=== PATIENT | male | born 1970 | race Caucasian/White ===

== ENCOUNTER 2022-07-10 17:46 | Inpatient (IN) | payer OTHER, SELFPAY ==
[2022-07-10 17:57] VITALS: BP 136/70; BP 143/66; PULSE 76; PULSE 90; RESP 17; TEMP 37; O2SAT 93; BMI 29.2
--- NOTE | 2022-07-10 18:24 | ED.PSYCH ---
HPI - Psych General Chief Complaint: Psychiatric Symptoms Stated Complaint: psychosis Time Seen by Provider: 07/10/22 18:18 Source: patient and EMS Mode of arrival: EMS Limitations: no limitations History of Present Illness HPI Narrative: 52-year-old male came in by EMS for patient being disorganized. Patient with psych history noncompliant with his medication complaining of auditory hallucination hearing voices, patient also found to have erratic behavior and walking around naked patient became very agitated required restraining from EMS before hospital transportation. Related Data Allergies Allergy/AdvReac Type Severity Reaction Status Date / Time No Known Allergies Allergy Unverified 01/05/20 18:47 Review of Systems Review of Systems: All other systems are reviewed and are negative Constitutional: Reports as per HPI and Reports no additional constitutional complaints Eyes: Reports as per HPI and Reports no additional eye complaints Reports system reviewed and no additional complaints, except as documented Cardiovascular: Reports as per HPI and Reports no additional cardiovascular complaints Respiratory: Reports as per HPI and Reports no additional respiratory complaints Gastrointestinal: Reports as per HPI and Reports no additional gastrointestinal complaints Genitourinary: Reports no additional female genitourinary complaints Musculoskeletal: Reports no additional musculoskeletal complaints Skin/Breast: Reports system reviewed and no additional complaints, except as docu Psychiatric: Reports no additional psychiatric complaints Endocrine: Reports no additional endocrine complaints Hematologic/Lymphatic: Reports no additional hematologic/lymphatic complaints Allergic/Immunologic: Reports no additional allergic/immunologic complaints Reports system reviewed and no additional complaints, except as documented and Reports Abnormal speech present COUNT INCLUDES THE [facility] Social History Social History Advance Directives: No Advance Directives Information Provided: No Physical Exam Vital Signs: Vital Signs: Last Vital Signs Temp 98.6 F 07/10/22 17:57 Pulse 76 07/10/22 17:57 Resp 17 07/10/22 17:57 BP 143/66 H 07/10/22 17:57 Pulse Ox 93 07/10/22 17:57 O2 Del Method Room Air 07/10/22 17:57 BMI result Body Mass Index 29.2 Vital signs have been reviewed as appeared to be correct. Blood pressure normal. Heart rate normal. Respiration rate normal. Temperature normal. Oxygen saturation normal. Appearance: Alert. Oriented X3. No acute distress. Head: Normal external exam. Normocephalic. Atraumatic. No Lance signs noted. No raccoon eyes noted Eyes: PERRLA. EOMI. Conjunctiva and sclera normal. Eyelids normal. ENT: TM's Normal. Pharynx normal. Uvula midline. Moist mucous membranes. No trismus noted. No drooling noted. No muffled voice noted. Neck: Normal inspection. Neck supple. FROM. No adenopathy. Thyroid Normal. No meningeal signs. No neck mass noted. CVS: Normal heart rate and rhythm. Heart sound normal. No murmurs noted. Pulses normal throughout. Respiratory: No respiratory distress. Painless inspiration. Breath sounds normal. No wheezes/rales/rhonchi noted. Chest nontender. No accessory muscle usage noted or decreased air movement noted. Abdomen: Soft and nontender. Bowel sounds normal in all 4 quadrants. No distention noted. No organomegaly noted. No visible injury noted. Back: No CVA tenderness. Full range of motion noted. Skin: Skin warm and dry. Normal skin color. Normal skin turgor. No rashes/lesions/lacerations noted. Extremities: No lower extremity edema. Extremities exhibit normal range of motion. Extremities nontender. Neuro: Oriented X 3. Cranial nerve exam: II-XII are grossly intact No motor deficit. No sensory deficit. Reflexes normal. Patient Orientation: Person, Place, Time and Situation, okay hygiene and grooming. Fair eye contact, attentive, no tics or tremors. Level of Consciousness: Awake, Appropriate and Alert Patient Behavior: Appropriate, Guarded, Cooperative and Anxious Mood Description: Constricted, Blunted and Apprehensive Affect Description: Constricted, Blunted and Apprehensive Patient Cognition Impaired: No Ability to Follow Directions: Excellent Speech Pattern: Clear, Appropriate and Spontaneous Speech, nonpressured, spontaneous with regular rate and rhythm, normal volume and prosody. No dysarthria. Memory Description: Intact, Immediate Intact and Short Term Intact Hallucinations: Auditory hallucination is present. Delusions: Not Present Thought Process: Intact Thought Content: positive for Intact, positive for Logical, denies Suicidal Ideation and denies Homicidal Ideation. Depressive Symptoms: Not present. Judgement and Insight: Limited but adequate. Course Course Course Narrative: Acute psychosis, medical clearance leukocytosis likely secondary to stress reaction., and care team evaluation. Medical Decision Making Differential Diagnosis Differential Diagnoses: The differential diagnosis associated with the presentation includes (Acute psychosis, electrolyte disturbance, renal insufficiency.) Lab Data 07/10/22 18:47 07/10/22 18:47 Labs: Lab Results 07/10/22 07/10/22 07/10/22 Range/Units 18:13 18:13 18:13 WBC (4.8-10.8) X10*3/uL RBC (4.60-5.80) X10*6/uL Hgb (14.0-18.0) g/dl Hct (42.0-52.0) % MCV (80.0-98.0) fL MCH (27.0-33.0) pg MCHC (31.0-36.0) g/dl RDW (11.0-16.0) % Plt Count (160-400) X10*3/uL MPV (9.4-12.4) fL Immature Gran % (Auto) (0.0-0.4) % Neut % (Auto) (45-73) % Lymph % (Auto) (20-40) % Coles % (Auto) (2-11) % Eos % (Auto) (0-4) % Baso % (Auto) (0-2) % Lymph # (Auto) (1.2-4.9) X10*3/uL Coles # (Auto) (0.1-1.2) X10*3/uL Eos # (Auto) (0.0-0.4) X10*3/uL Baso # (Auto) (0.0-0.2) X10*3/uL Abs Immat Gran (auto) (0.00-0.03) X10*3/uL Absolute Neuts (auto) (2.0-8.3) x10*3/uL Absolute Nucleated RBC (0.0-0.012) X10*3/uL Nucleated RBC % (auto) (0.0-0.2) /100WBC Sodium (135-145) mmol/L Potassium (3.3-5.1) mmol/L Chloride (96-108) mmol/L Carbon Dioxide (22-29) mmol/L Anion Gap (12-20) BUN (9-16) mg/dL Creatinine (0.5-1.4) mg/dL Estim Creat Clear Calc Estimated GFR Random Glucose (60-115) mg/dL Calcium (8.4-10.2) mg/dL Total Bilirubin (0.0-1.0) mg/dL AST (5-37) U/L ALT (0-40) U/L Alkaline Phosphatase (39-117) U/L Total Protein (6.5-8.0) g/dL Albumin (3.5-5.0) g/dL Urine Color Yellow Urine Appearance Clear Urine pH 6.5 (5.0-9.0) Ur Specific Hendrix 1.010 (1.005-1.025) Urine Protein Negative (Neg-Trace) mg/dL Urine Glucose (UA) Negative (Negative) mg/dL Urine Ketones Negative (Negative) mg/dL Urine Blood Negative (Negative) Urine Nitrite Negative (Negative) Ur Leukocyte Esterase Small (1+) H (Negative) Urine RBC 0-2 (0-2) /HPF Urine WBC 0-5 (0-5) /HPF Ur Squamous Epith Cells 0-2 (0-2) /HPF Urine Bacteria None Seen (None Seen) Hyaline Casts 0-2 (0-2) /LPF Urine Opiates Screen Not Detected (Not Detect) Urine Fentanyl Screen Not Detected (Not Detect) Ur Barbiturates Screen Not Detected (Not Detect) Ur Phencyclidine Scrn Not Detected (Not Detect) Ur Amphetamines Screen Not Detected (Not Detect) U Benzodiazepines Scrn POSITIVE H (Not Detect) Urine Cocaine Screen Not Detected (Not Detect) U Marijuana (THC) Screen POSITIVE H (Not Detect) Ethyl Alcohol mg/dL COVID-19 (SHANNA) Negative (Negative) COVID-19 Clin Com See Note 07/10/22 07/10/22 Range/Units 18:47 18:47 WBC 14.5 H (4.8-10.8) X10*3/uL RBC 4.47 L (4.60-5.80) X10*6/uL Hgb 13.8 L (14.0-18.0) g/dl Hct 41.0 L (42.0-52.0) % MCV 91.7 (80.0-98.0) fL MCH 30.9 (27.0-33.0) pg MCHC 33.7 (31.0-36.0) g/dl RDW 11.9 (11.0-16.0) % Plt Count 245 (160-400) X10*3/uL MPV 8.8 L (9.4-12.4) fL Immature Gran % (Auto) 0.3 (0.0-0.4) % Neut % (Auto) 80.7 H (45-73) % Lymph % (Auto) 14.1 L (20-40) % Coles % (Auto) 4.5 (2-11) % Eos % (Auto) 0.1 (0-4) % Baso % (Auto) 0.3 (0-2) % Lymph # (Auto) 2.1 (1.2-4.9) X10*3/uL Coles # (Auto) 0.7 (0.1-1.2) X10*3/uL Eos # (Auto) 0.0 (0.0-0.4) X10*3/uL Baso # (Auto) 0.1 (0.0-0.2) X10*3/uL Abs Immat Gran (auto) 0.05 H (0.00-0.03) X10*3/uL Absolute Neuts (auto) 11.7 H (2.0-8.3) x10*3/uL Absolute Nucleated RBC 0.000 (0.0-0.012) X10*3/uL Nucleated RBC % (auto) 0.0 (0.0-0.2) /100WBC Sodium 135 (135-145) mmol/L Potassium 4.2 (3.3-5.1) mmol/L Chloride 96 (96-108) mmol/L Carbon Dioxide 27 (22-29) mmol/L Anion Gap 16 (12-20) BUN 15 (9-16) mg/dL Creatinine 1.23 (0.5-1.4) mg/dL Estim Creat Clear Calc 80.8 Estimated GFR > 60 Random Glucose 152 H (60-115) mg/dL Calcium 9.7 (8.4-10.2) mg/dL Total Bilirubin 0.7 (0.0-1.0) mg/dL AST 30 (5-37) U/L ALT 23 (0-40) U/L Alkaline Phosphatase 48 (39-117) U/L Total Protein 6.7 (6.5-8.0) g/dL Albumin 4.4 (3.5-5.0) g/dL Urine Color Urine Appearance Urine pH (5.0-9.0) Ur Specific Hendrix (1.005-1.025) Urine Protein (Neg-Trace) mg/dL Urine Glucose (UA) (Negative) mg/dL Urine Ketones (Negative) mg/dL Urine Blood (Negative) Urine Nitrite (Negative) Ur Leukocyte Esterase (Negative) Urine RBC (0-2) /HPF Urine WBC (0-5) /HPF Ur Squamous Epith Cells (0-2) /HPF Urine Bacteria (None Seen) Hyaline Casts (0-2) /LPF Urine Opiates Screen (Not Detect) Urine Fentanyl Screen (Not Detect) Ur Barbiturates Screen (Not Detect) Ur Phencyclidine Scrn (Not Detect) Ur Amphetamines Screen (Not Detect) U Benzodiazepines Scrn (Not Detect) Urine Cocaine Screen (Not Detect) U Marijuana (THC) Screen (Not Detect) Ethyl Alcohol < 10 mg/dL COVID-19 (SHANNA) (Negative) COVID-19 Clin Com Discharge Plan Discharge Clinical Impression: Acute psychosis Patient Disposition: Still a Patient Interventions: [place]-Suicide Risk Severity Scale Last Done: 07/10/22 18:00
[2022-07-10 18:31] LABS: Appearance Urine Clear; Color Urine Yellow; Glucose Urine UA Negative (Negative); Leukocyte Esterase Urine Small (1+) (Negative); Nitrite Urine Negative (Negative); PH 6.5 (5.0-9.0); UMIC TRIGGER UACC YES; Urine Blood Negative (Negative); Urine Ketones Negative (Negative); Urine Protein Negative (Neg-Trace)
--- NOTE | 2022-07-10 18:38 | PC.NURSE ---
patient cooperative with staff. no belongings present on admit. will CTM for escalating behaviors
[2022-07-10 18:44] LABS: Bacteria Urine None Seen (None Seen); Hyaline Casts Urine 0-2 /LPF (0-2); RBC Urine 0-2 /HPF (0-2); Squamous Epithelial Cell Urine 0-2 /HPF (0-2); UACC Culture Trigger YES; WBC Urine 0-5 /HPF (0-5)
[2022-07-10 18:46] LABS: Amphetamine Screen Urine Not Detected (Not Detect); Barbiturates, Urine Not Detected (Not Detect); Benzodiazepines Screen Urine POSITIVE (Not Detect); Cannabinoid Screen Urine POSITIVE (Not Detect); Cocaine Screen Urine Not Detected (Not Detect); Fentanyl, urine Not Detected (Not Detect); Opiate Screen Urine Not Detected (Not Detect); Phencyclidine Screen Urine Not Detected (Not Detect)
[2022-07-10 18:52] LABS: MANUAL DIFF FLAG NO
[2022-07-10 18:52] LABS: COVID-19 Test Negative (Negative); IDNOW Serial# 08D9AD1C
[2022-07-10 18:56] LABS: Basophils Absolute Auto 0.1 X10*3/uL (0.0-0.2); Basophils Percent Auto 0.3 % (0-2); Eosinophils Percent Auto 0.1 % (0-4); Hemoglobin 13.8 g/dl (14.0-18.0); Imm Gran Abs Auto 0.05 X10*3/uL (0.00-0.03); Imm Gran Pct Auto 0.3 % (0.0-0.4); Lymphocytes Absolute Auto 2.1 X10*3/uL (1.2-4.9); Lymphocytes Percent Auto 14.1 % (20-40); Mean Corpuscular HGB Conc 33.7 g/dl (31.0-36.0); Mean Corpuscular Hemoglobin 30.9 pg (27.0-33.0); Mean Corpuscular Volume 91.7 fL (80.0-98.0); Mean Platelet Volume 8.8 fL (9.4-12.4); Monocytes Absolute Auto 0.7 X10*3/uL (0.1-1.2); Monocytes Percent Auto 4.5 % (2-11); Neutrophils Absolute Auto 11.7 x10*3/uL (2.0-8.3); Neutrophils Percent Auto 80.7 % (45-73); Platelet Count 245 X10*3/uL (160-400); Red Blood Count 4.47 X10*6/uL (4.60-5.80); Red Cell Distribution Width 11.9 % (11.0-16.0); White Blood Count 14.5 X10*3/uL (4.8-10.8)
[2022-07-10 19:08] LABS: Alanine Aminotransferase 23 U/L (0-40); Albumin Level 4.4 g/dL (3.5-5.0); Alkaline Phosphatase 48 U/L (39-117); Anion Gap 16 (12-20); Aspartate Amino Transferase 30 U/L (5-37); Bilirubin Total 0.7 mg/dL (0.0-1.0); Blood Urea Nitrogen 15 mg/dL (9-16); Calcium 9.7 mg/dL (8.4-10.2); Carbon Dioxide 27 mmol/L (22-29); Chloride 96 mmol/L (96-108); Creatinine Clr Calc Pharmacy 80.8; Estimated Glomerular Filt Rate > 60; Glucose Random 152 mg/dL (60-115); Potassium 4.2 mmol/L (3.3-5.1); Sodium 135 mmol/L (135-145); Total Protein 6.7 g/dL (6.5-8.0)
--- NOTE | 2022-07-10 19:42 | MHC.CARE ---
Pt was sent to ED by [facility] on a section 12. T/w spoke to officer who states that pt was d/c from [facility] Thursday. He has not been taking his medications. His parents called PD today because he was disrobing, uncooperative with police which resulted in him being restrained and was combative. Parents are in fear of pt due to erratic and explosive behaviors.
[2022-07-10 19:44] LABS: Ethanol < 10 mg/dL
[2022-07-11 00:37] VITALS: BP 160/93; PULSE 58; RESP 16; TEMP 36.6; O2SAT 97
[2022-07-11] MEDS: OLANZapine 10 MG TABLET PO (01:27)
[2022-07-11] MEDS: Nicotine 21 MG PATCH.TD24 TRANSDERMA (05:48)
--- NOTE | 2022-07-11 06:11 | PC.NURSE ---
Patient slept intermittently, Olanzapine 10 mg po administered at 0127 as ordered with positive effective, med rec completed/not on any home medication currently, attempted to retrieve medical record from [facility] and [facility] but unsuccessful, thought content paranoid, thought process tangential at time exhibits coherency, reports multiple delusional complaints such as reporting smelling urine in blankets, having heart attack, etc. patient was assessed by care team, pending disposition due inability to talk to patient's mother with whom patient lives, VSS, will continue to monitor.
--- NOTE | 2022-07-11 09:47 | ECG_ITS ---
Test Reason : prolonged QT Blood Pressure : / mmHG Vent. Rate : 077 BPM Atrial Rate : 077 BPM P-R Int : 144 ms QRS Dur : 098 ms QT Int : 382 ms P-R-T Axes : 067 048 025 degrees QTc Int : 432 ms Sinus rhythm with marked sinus arrhythmia Otherwise normal ECG No previous ECGs available Referred By: Alejandra Norton Electronically Signed By:JAYRO JUSTICE MD
[2022-07-11 12:11] VITALS: BP 161/89; PULSE 89; RESP 20; TEMP 36.8; O2SAT 98
[2022-07-11 15:34] VITALS: BP 151/92; PULSE 92; RESP 18; O2SAT 95
--- NOTE | 2022-07-11 15:44 | PC.NURSE ---
Patient in bathroom, staff noted to hear a bang pt then stated he hit his head on the door and lowered himself to the floor. Pt denies dizziness, MCCOY, blurry vision, Vitals obtained and stable, made aware, PA at bedside currently. No lumps/redness noted. Pt verbalized I am upset and just wanted to hit my head so I can get out of here, my head is hard as a rock Pt verbalized to staff he did it on purpose, but understands why we are asking him these questions. No new orders at this time.
--- NOTE | 2022-07-11 16:41 | PC.NURSE ---
Nurse to nurse report given to M3 nurse, all questions answered. Awaiting room cleaning and transport up to new room. Pt A/O at this time, made aware of report being given, pt in agreement with plan.
[2022-07-11 17:40] VITALS: BP 133/84; PULSE 102; TEMP 36.8; O2SAT 95
--- NOTE | 2022-07-11 17:51 | PC.ADMIT ---
Buck is a 52-year-old male admitted from [facility] Pod 07/11/22 1740, CV signed. Pt was seen at [facility] ED on 07/07
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
[2022-07-11] MEDS: traZODone HCL 50 MG TABLET PO (21:04)
[2022-07-11] MEDS: hydrOXYzine HCL 25 MG TABLET PO (21:04)
[2022-07-11] MEDS: OLANZapine 5 MG TABLET PO (21:04)
[2022-07-12] MEDS: Nicotine 21 MG PATCH.TD24 TRANSDERMA (08:00)
[2022-07-12] MEDS: Acetaminophen 325 MG TABLET 650 MG PO ×2 (08:01→20:26)
[2022-07-12 08:45] LABS: Estimated Average Glucose 114 mg/dL; Hemoglobin A1c % 5.6 %
[2022-07-12 08:49] VITALS: BP 160/77; PULSE 83; TEMP 36.7; O2SAT 85
[2022-07-12 08:49] LABS: Alanine Aminotransferase 21 U/L (0-40); Albumin Level 4.2 g/dL (3.5-5.0); Alkaline Phosphatase 50 U/L (39-117); Anion Gap 15 (12-20); Aspartate Amino Transferase 26 U/L (5-37); Bilirubin Total 0.5 mg/dL (0.0-1.0); Blood Urea Nitrogen 17 mg/dL (9-16); Calcium 9.3 mg/dL (8.4-10.2); Carbon Dioxide 25 mmol/L (22-29); Chloride 104 mmol/L (96-108); Cholesterol 154 mg/dL; Creatinine Clr Calc Pharmacy 98.4; Estimated Glomerular Filt Rate > 60; Glucose Fasting 143 mg/dL (60-99); HDL Cholesterol 40 mg/dL; LDL Cholesterol Calculated 94 mg/dl; Potassium 4.4 mmol/L (3.3-5.1); Sodium 140 mmol/L (135-145); Total Protein 6.6 g/dL (6.5-8.0); Triglycerides 102 mg/dL
[2022-07-12 09:19] LABS: Folate 13.8 ng/mL (> or = 4.0); Free T4 (Free Thyroxine) 1.07 ng/dL (0.71-1.85); Vitamin B12 679 pg/mL (200-900)
[2022-07-12] MEDS: Lurasidone HCl 20 MG TABLET PO (13:25)
[2022-07-12] MEDS: Nicotine Polacrilex 2 MG GUM BUCCAL (16:20)
[2022-07-12] MEDS: Albuterol Sulfate 90 MCG 8 GM INHALER 2 PUFF INHALE ×2 (16:20→21:55)
[2022-07-12] MEDS: traZODone HCL 50 MG TABLET PO (20:26)
[2022-07-12] MEDS: hydrOXYzine HCL 25 MG TABLET PO (20:26)
[2022-07-12 20:31] VITALS: BP 153/72; PULSE 76; RESP 18; TEMP 36.7; O2SAT 94
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
[2022-07-13] MEDS: Nicotine 21 MG PATCH.TD24 TRANSDERMA (08:19)
[2022-07-13] MEDS: Lurasidone HCl 40 MG TABLET PO (08:20)
[2022-07-13 08:22] VITALS: BP 157/87; PULSE 85; RESP 18; TEMP 36.3; O2SAT 96
[2022-07-13] MEDS: hydrOXYzine HCL 25 MG TABLET PO ×2 (16:00→20:19)
[2022-07-13] MEDS: Nicotine Polacrilex 2 MG GUM BUCCAL (20:19)
[2022-07-13] MEDS: traZODone HCL 50 MG TABLET PO (20:19)
[2022-07-13] MEDS: Acetaminophen 325 MG TABLET 650 MG PO (20:19)
[2022-07-13 20:30] VITALS: BP 163/95; PULSE 78; RESP 18; TEMP 35.9; O2SAT 95
--- NOTE | 2022-07-13 20:49 | HO.PSYCHPN ---
Subjective Subjective Date of Service: 07/13/22 Reason For Visit: psychosis Interim History: Patient seen and discussed. He reports he continues to have AH. He feels he is in a safe place. He said he should be fasting because it is Ramadan. He told RN he picked up bad spirits during his time in [place]. 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 He believes the end is coming. (reference to Islamic caodaism beliefs.) He said he misses his son and his current fiance. He feels depressed and a mix of emotions. Sleep is good with Trazodone. Review of Systems Review of Systems All other systems are reviewed and are negative Constitutional: Reports as per HPI and Reports no additional constitutional complaints Eyes: Reports as per HPI and Reports no additional eye complaints Reports system reviewed and no additional complaints, except as documented Cardiovascular: Reports as per HPI and Reports no additional cardiovascular complaints Respiratory: Reports as per HPI and Reports no additional respiratory complaints Gastrointestinal: Reports as per HPI and Reports no additional gastrointestinal complaints Genitourinary: Reports no additional female genitourinary complaints Musculoskeletal: Reports no additional musculoskeletal complaints Skin/Breast: Reports system reviewed and no additional complaints, except as docu Psychiatric: Reports no additional psychiatric complaints Endocrine: Reports no additional endocrine complaints Hematologic/Lymphatic: Reports no additional hematologic/lymphatic complaints Allergic/Immunologic: Reports no additional allergic/immunologic complaints Reports system reviewed and no additional complaints, except as documented and Reports Abnormal speech present Mental Status Exam Mental Status Exam Patient Appearance: Appropriate and Unkempt Patient Orientation: Person, Place, Time and Situation Level of Consciousness: Awake, Appropriate, Alert and Follows Commands Patient Behavior: Appropriate, Guarded, Anxious and Good Eye Contact Mood Description: Calm, Constricted, Depressed and Sad Affect Description: Constricted and Depressed Patient Cognition Impaired: No Ability to Follow Directions: Good Speech Pattern: Clear, Appropriate and Spontaneous Speech Memory Description: Episodic Impaired and Immediate Intact Hallucinations: Auditory Delusions: Paranoid Ideation Perceptual Disturbances: Hallucinations Thought Process: Illogical Thought Content: positive for Racing Diagnostics Vital Signs (24Hr): Vital Signs - 24 hr 07/13/22 08:22 Temperature 97.4 F Pulse Rate 85 Respiratory Rate 18 Blood Pressure 157/87 H Pulse Oximetry 96 Oxygen Delivery Method Room Air BMI result Body Mass Index 29.2 Labs 07/10/22 18:47 07/12/22 07:55 Labs: Laboratory Results - last 48 hr 07/12/22 07/12/22 07:55 07:55 Sodium 140 Potassium 4.4 Chloride 104 Carbon Dioxide 25 Anion Gap 15 BUN 17 H Creatinine 1.01 Estim Creat Clear Calc 98.4 Estimated GFR > 60 Fasting Glucose 143 H Estimat Average Glucose 114 Hemoglobin A1c % 5.6 Calcium 9.3 Total Bilirubin 0.5 AST 26 ALT 21 Alkaline Phosphatase 50 Total Protein 6.6 Albumin 4.2 Triglycerides 102 Cholesterol 154 LDL Cholesterol, Calc 94 HDL Cholesterol 40 Vitamin B12 679 Folate 13.8 TSH 0.70 Free T4 1.07 Medications Medications Current Medications Acetaminophen (Acetaminophen 325 Mg Tablet) 650 mg PO Q6H PRN PRN Reason: Headache/Pain Mild Scale (1-3) Last Admin: 07/13/22 20:19 Dose: 650 mg Al Hydroxide/Mg Hydroxide (Magnesium Hydrox/Alum Hydrox 30 Ml Oral.Susp) 30 ml PO Q6H PRN PRN Reason: Heartburn/Nausea Albuterol Sulfate (Albuterol Sulfate 90 Mcg 8 Gm Inhaler) 2 puff INHALE Q4H PRN PRN Reason: Shortness of Breath/Wheezing Last Admin: 07/12/22 21:55 Dose: 2 puff Hydroxyzine HCl (Hydroxyzine Hcl 25 Mg Tablet) 25 mg PO Q6H PRN PRN Reason: Anxiety Last Admin: 07/13/22 20:19 Dose: 25 mg Ibuprofen (Ibuprofen 600 Mg Tablet) 600 mg PO Q8H PRN PRN Reason: back pain Lidocaine (Lidocaine 4 % Patch Adh..Patch) 1 patch TRANSDERMA DAILY [facility] DEL [facility]; Protocol Lurasidone HCl (Lurasidone Hcl 20 Mg Tablet) 60 mg PO DAILY [facility] Magnesium Hydroxide (Milk Of Magnesia 30 Ml Oral.Susp) 30 ml PO DAILY PRN PRN Reason: Constipation Nicotine (Nicotine 21 Mg Patch.Td24) 21 mg TRANSDERMA DAILY [facility] Last Admin: 07/13/22 08:19 Dose: 21 mg Nicotine Polacrilex (Nicotine Polacrilex 2 Mg Gum) 2 mg BUCCAL Q2H PRN PRN Reason: Nicotine Cravings Last Admin: 07/13/22 20:19 Dose: 2 mg Trazodone HCl (Trazodone Hcl 50 Mg Tablet) 50 mg PO BEDTIME MRX1 PRN PRN Reason: Insomnia Last Admin: 07/13/22 20:19 Dose: 50 mg Allergies Allergies Allergy/AdvReac Type Severity Reaction Status Date / Time opioids AdvReac Severe Vomiting Uncoded 07/12/22 23:16 Assessment & Plan Assessment & Plan (1) Acute psychosis: Status: Acute Code(s): F23 - Brief psychotic disorder (2) PTSD (post-traumatic stress disorder): Status: Acute Code(s): F43.10 - Post-traumatic stress disorder, unspecified (3) Cannabis dependence: Status: Acute Code(s): F12.20 - Cannabis dependence, uncomplicated Plan 52 yo male with history of PTSD and cannabis use disorder presents with disorganized behavior, depression, hallucinations and paranoia. Symptoms have subsided. Describes episodes that are similar but less intense for many years. He has had a recent admission to [facility] with depression. Differential dx include: - Bipolar disorder current episode mixed/depressed/manic with psychosis exacerbated by cannabis use. - Substance use, cannabis, induced psychosis. - Schizoaffetive disorder Plan: - Admit to M3 - Diagnostic clarification - Collaterals - Milieu therapy - Start Latuda 20 mg today, 40 mg tomorrow and 60 mg Thursday. - DC Zyprexa. - After care planning 07/13: Continue Latuda titration. Consider mood stabilizer. Reason for contiued inpatient stay Substantial Risk for: inability to function and rapid decompensation Time Spent With Patient Time: Total time managing care of this patient today ____ minutes.
[2022-07-13] MEDS: Lidocaine 4 % Patch ADH..PATCH 1 PATCH TRANSDERMA (21:08)
[2022-07-13] MEDS: Ibuprofen 600 MG TABLET PO (21:08)
[2022-07-14] MEDS: Acetaminophen 325 MG TABLET 650 MG PO ×3 (00:58→20:58)
[2022-07-14] MEDS: hydrOXYzine HCL 25 MG TABLET PO ×2 (01:20→20:58)
[2022-07-14] MEDS: Nicotine Polacrilex 2 MG GUM BUCCAL ×2 (01:26→11:56)
[2022-07-14] MEDS: Albuterol Sulfate 90 MCG 8 GM INHALER 2 PUFF INHALE ×3 (02:54→20:58)
[2022-07-14 08:40] VITALS: BP 143/77; PULSE 70; RESP 18; TEMP 36.5; O2SAT 94
[2022-07-14] MEDS: Nicotine 21 MG PATCH.TD24 TRANSDERMA (09:08)
[2022-07-14] MEDS: Lurasidone HCl 20 MG TABLET 60 MG PO (09:09)
[2022-07-14] MEDS: Lidocaine 4 % Patch ADH..PATCH 1 PATCH TRANSDERMA (09:51)
[2022-07-14 10:33] LABS: Glucose, Whole Blood 101 mg/dL (60-115)
--- NOTE | 2022-07-14 14:55 | HO.PSYCHPN ---
Subjective Subjective Date of Service: 07/14/22 Reason For Visit: psychosis Interim History: calm, cooperative. states his AH have resolved and he feels ready for discharge. mood is normal. denies SI/HI/AVH. needs providers. per staff, pleasant, polite. confused yesterday. says he is feeling vibrations around him which are causing him distress. sleeping only several hours per night. Mental Status Exam Mental Status Exam Narrative: adequate hygiene and dress. cooperative. speech nml rate, amount, loudness, tone, latency. thoughts linear and logical. affect constricted, normo-intense, non-labile. mood normal. denies SI/HI/AVH. Diagnostics Vital Signs (24Hr): Vital Signs - 24 hr 07/13/22 20:30 07/14/22 08:40 Temperature 96.7 F L 97.7 F Pulse Rate 78 70 Respiratory Rate 18 18 Blood Pressure 163/95 H 143/77 H Pulse Oximetry 95 94 Oxygen Delivery Method Room Air Room Air BMI result Body Mass Index 29.2 Labs 07/10/22 18:47 07/12/22 07:55 Labs: Laboratory Results - last 48 hr 07/14/22 10:29 POC Glucose 101 Medications Medications Current Medications Acetaminophen (Acetaminophen 325 Mg Tablet) 650 mg PO Q6H PRN PRN Reason: Headache/Pain Mild Scale (1-3) Last Admin: 07/14/22 09:09 Dose: 650 mg Al Hydroxide/Mg Hydroxide (Magnesium Hydrox/Alum Hydrox 30 Ml Oral.Susp) 30 ml PO Q6H PRN PRN Reason: Heartburn/Nausea Albuterol Sulfate (Albuterol Sulfate 90 Mcg 8 Gm Inhaler) 2 puff INHALE Q4H PRN PRN Reason: Shortness of Breath/Wheezing Last Admin: 07/14/22 11:56 Dose: 2 puff Hydroxyzine HCl (Hydroxyzine Hcl 25 Mg Tablet) 25 mg PO Q6H PRN PRN Reason: Anxiety Last Admin: 07/14/22 01:20 Dose: 25 mg Ibuprofen (Ibuprofen 600 Mg Tablet) 600 mg PO Q8H PRN PRN Reason: back pain Last Admin: 07/13/22 21:08 Dose: 600 mg Lidocaine (Lidocaine 4 % Patch Adh..Patch) 1 patch TRANSDERMA DAILY [facility] DEL CARMEN; Protocol Last Admin: 07/14/22 09:51 Dose: 1 patch Lurasidone HCl (Lurasidone Hcl 20 Mg Tablet) 60 mg PO DAILY [facility] Last Admin: 07/14/22 09:09 Dose: 60 mg Magnesium Hydroxide (Milk Of Magnesia 30 Ml Oral.Susp) 30 ml PO DAILY PRN PRN Reason: Constipation Nicotine (Nicotine 21 Mg Patch.Td24) 21 mg TRANSDERMA DAILY [facility] Last Admin: 07/14/22 09:08 Dose: 21 mg Nicotine Polacrilex (Nicotine Polacrilex 2 Mg Gum) 2 mg BUCCAL Q2H PRN PRN Reason: Nicotine Cravings Last Admin: 07/14/22 11:56 Dose: 2 mg Trazodone HCl (Trazodone Hcl 50 Mg Tablet) 50 mg PO BEDTIME MRX1 PRN PRN Reason: Insomnia Last Admin: 07/13/22 20:19 Dose: 50 mg Allergies Allergies Allergy/AdvReac Type Severity Reaction Status Date / Time opioids AdvReac Severe Vomiting Uncoded 07/12/22 23:16 Assessment & Plan Assessment & Plan (1) Acute psychosis: Status: Acute Code(s): F23 - Brief psychotic disorder (2) PTSD (post-traumatic stress disorder): Status: Acute Code(s): F43.10 - Post-traumatic stress disorder, unspecified (3) Cannabis dependence: Status: Acute Code(s): F12.20 - Cannabis dependence, uncomplicated Plan 52 yo male with history of PTSD and cannabis use disorder presents with disorganized behavior, depression, hallucinations and paranoia. Symptoms have subsided. Describes episodes that are similar but less intense for many years. He has had a recent admission to [facility] with depression. Differential dx include: - Bipolar disorder current episode mixed/depressed/manic with psychosis exacerbated by cannabis use. - Substance use, cannabis, induced psychosis. - Schizoaffetive disorder Plan: - Admit to M3 - Diagnostic clarification - Collaterals - Milieu therapy - Start Latuda 20 mg today, 40 mg tomorrow and 60 mg Thursday. - DC Zyprexa. - After care planning 07/13: Continue Latuda titration. Consider mood stabilizer. 07/14: latuda at 60 mg daily. pt reports he feels fine and is ready for discharge. appears to be sleeping very little, but MSE is largely WNL. begin discharge planning and observe overnight. Reason for contiued inpatient stay Substantial Risk for: inability to function and rapid decompensation Time Spent With Patient Time: Total time managing care of this patient today __25__ minutes.
[2022-07-14] MEDS: Ibuprofen 600 MG TABLET PO (15:38)
[2022-07-14 20:48] VITALS: BP 142/75; PULSE 77; RESP 16; TEMP 36.8; O2SAT 96
[2022-07-14] MEDS: traZODone HCL 50 MG TABLET PO (20:58)
[2022-07-15] MEDS: Lidocaine 4 % Patch ADH..PATCH 1 PATCH TRANSDERMA (08:40)
[2022-07-15] MEDS: Nicotine 21 MG PATCH.TD24 TRANSDERMA (08:42)
[2022-07-15 09:00] VITALS: BP 123/87; PULSE 75; RESP 18; TEMP 36.3; O2SAT 94
[2022-07-15] MEDS: Lurasidone HCl 20 MG TABLET 60 MG PO (09:04)
[2022-07-15] MEDS: Ibuprofen 600 MG TABLET PO ×2 (10:20→17:13)
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
[2022-07-15] MEDS: Albuterol Sulfate 90 MCG 8 GM INHALER 2 PUFF INHALE (13:05)
[2022-07-15] MEDS: Acetaminophen 325 MG TABLET 650 MG PO ×2 (14:59→21:37)
[2022-07-15] MEDS: Nicotine Polacrilex 2 MG GUM BUCCAL (19:07)
[2022-07-15] MEDS: hydrOXYzine HCL 25 MG TABLET PO (20:01)
[2022-07-15] MEDS: traZODone HCL 50 MG TABLET PO ×2 (20:01→21:37)
[2022-07-15 20:04] VITALS: BP 131/74; PULSE 77; RESP 16; TEMP 36.6; O2SAT 98
[2022-07-16 06:00] VITALS: BP 150/80; PULSE 72; RESP 16; TEMP 36.6; O2SAT 98
[2022-07-16] MEDS: Nicotine 21 MG PATCH.TD24 TRANSDERMA (09:41)
[2022-07-16] MEDS: Ibuprofen 600 MG TABLET PO (09:41)
[2022-07-16] MEDS: Lidocaine 4 % Patch ADH..PATCH 1 PATCH TRANSDERMA (09:42)
[2022-07-16] MEDS: Acetaminophen 325 MG TABLET 650 MG PO (10:39)
[2022-07-16] MEDS: Lurasidone HCl 20 MG TABLET 60 MG PO (11:36)
== END 2022-07-16 11:45 | disposition home or self-care (01) | DRG 751 ==
LOC: HO.ED 19:15 → HO.PADLT16 07-11 17:10
PROVIDERS: Admitting Provider Psychiatry & Neurology Psychiatry; Emergency Provider Emergency Medicine; Visit Provider Psychiatry & Neurology Psychiatry
DX: F29 Unspecified psychosis not due to a substance or known physiological condition (principal); R45.851 Suicidal ideations; F12.20 Cannabis dependence, uncomplicated; F17.210 Nicotine dependence, cigarettes, uncomplicated; Z71.6 Tobacco abuse counseling; F43.10 Post-traumatic stress disorder, unspecified; Z20.822 Contact with and (suspected) exposure to COVID-19; Z88.5 Allergy status to narcotic agent; Z79.899 Other long term (current) drug therapy
CPT/HCPCS: 36415; 80053; 80061; 80307; 81001; 82077; 82607; 82746; 82947; 83036; 84439; 84443; 85025; 87086; 87635; 93005; 99285; S9485